=== PATIENT | female | born 1960 | race Caucasian/White ===

== ENCOUNTER → 2023-10-09 12:47 | Outpatient (CLI) | payer OTHER, SELFPAY ==
--- NOTE | 2023-10-09 | DI.ECHO.S_ITS ---
[facility] +---------+ [facility] : : [address] : : [place] : : [id number] : : Phone: [phone] Echocardiogram Report + + :Name: DEREK BROWN Study Date: 10/09/2023 Height: 64 in : :Hospital ReadingLocation: Weight: 350 lb: : Gender: Female BSA: 2.5 m2 : :: 1960 Age: 63 yrs : :Reason For Study: Atrial fibrillation : :Ordering Physician: LAN, : :ARSENIO Herbert Performed By: Tiffany Webber : :Referring: ARSENIO MONTENEGRO : + + Interpretation Summary The ejection fraction is estimated to be 60-65%. There is no significant valvular heart disease. Procedure: A two-dimensional transthoracic echocardiogram with color flow and Doppler was performed. The study quality was technically adequate. There is no prior echocardiogram noted for this patient. The heart rate ranged between 84-86 bpm during the study. Left Ventricle: The left ventricle is normal in size and wall thickness. The ejection fraction is estimated to be 60-65%. Septal motion is consistent with conduction abnormality. Diastolic parameters suggest probable normal left ventricular diastolic function and normal filling pressures. Right Ventricle: The right ventricle grossly appears normal in size with probable normal systolic function. Atria: The left atrial size is normal. Right atrial size is normal. Mitral Valve: The mitral valve is normal in structure and function. There is no mitral regurgitation noted. Aortic Valve: The aortic valve is trileaflet. The aortic valve opens well. No aortic regurgitation is present. Tricuspid Valve: The tricuspid valve is normal in structure and function. No tricuspid regurgitation. Pulmonic Valve: The pulmonic valve is not well seen, but is grossly normal. There is no pulmonic valvular regurgitation. Great Vessels: The aortic root is normal size. The ascending aorta could not be visualized. The aortic arch is normal in size. The inferior vena cava was not well visualized. Pericardium/ Pleura There is no pericardial effusion. There is no pleural effusion. MMode/2D Measurements & Calculations LVIDd: 4.6 cm LVOT diam: 2.1 cm LVIDs: 2.6 cm Ao root diam: 3.4 cm FS: 43.9 % Ao Arch Diam (Prox Trans): 2.6 cm EPSS: 1.1 cm IVSd: 1.0 cm LVPWd: 0.83 cm LV maloney. diameter/BSA (cm/m^2): 1.8 LV sys. diameter/BSA (cm/m^2): 1.0 LA A2 area: 19.6 cm2 RA long axis: 4.6 cm LA A4 area: 17.1 cm2 RA area: 14.4 cm2 LA length (vol): 5.9 cm RA vol: 38.0 ml LA vol: 48.0 ml RA : 15.3 ml/m2 LA vol index: 19.4 ml/m2 RVD1 (basal): 2.9 cm TAPSE: 2.2 cm Doppler Measurements & Calculations Ao V2 max: 141.1 cm/sec LVOT Max Hany: 101.2 cm/sec Ao V2 mean: 99.0 cm/sec LV V1 max P.1 mmHg Ao max P.0 mmHg LV V1 VTI: 24.4 cm Ao mean P.4 mmHg ELVIRA(I,D): 2.8 cm2 Ao V2 VTI: 31.3 cm ELVIRA(V,D): 2.6 cm2 sev ratio: 0.78 ELVIRA indexed to BSA (cm^2/m^2): 1.1 MV E max hany: 67.7 cm/sec PA V2 max: 100.4 cm/sec MV A max hany: 95.1 cm/sec PA V2 mean: 70.1 cm/sec MV E/A: 0.71 PA mean P.2 mmHg Med Peak E' Hany: 6.2 cm/sec PA pr(Accel): 25.9 mmHg E/E' med: 10.9 Lat Peak E' Hany: 8.8 cm/sec E/E' lat: 7.7 E/e' average: 9.3 MV dec time: 0.27 sec SV(LVOT): 86.7 ml Reading Physician:03:06 PM
== END ==
PROVIDERS: PCP Internal Medicine; Referring Provider Internal Medicine; Visit Provider Internal Medicine
DX: I48.91 Unspecified atrial fibrillation (principal)
CPT/HCPCS: 93306